=== PATIENT | male | born 1975 | race Two or more races ===

== ENCOUNTER 2019-04-01 05:08 | Emergency (ER) | payer MEDICAID ==
[~2019-04-01] VITALS: Ht 170.2 cm; Wt 91.8 kg
[2019-04-01 05:20] VITALS: Ht 170.2 cm; Wt 91.8 kg
[2019-04-01 06:27] LABS: CALCIUM 8.6 mg/dL (8.5-10.1); CARBON DIOXIDE 26.5 mmol/L (21-32); CHLORIDE SERUM 104 mmol/L (98-107); CREATININE SERUM 0.7 mg/dL (0.7-1.3); GFR1 > 60 mL/min; GLUCOSE SERUM 134 mg/dL (74-106); SODIUM SERUM 141 mmol/L (136-145)
[2019-04-01 06:31] LABS: ALKALINE PHOSPHATASE 78 U/L (46-116); ALT/SGPT 66 U/L (16-63); AMYLASE 59 U/L (25-115); AST/SGOT 30 U/L (15-37); BASOPHIL % 0.2 % (0-2); BILIRUBIN TOTAL 0.35 mg/dL (0.20-1.00); LIPASE 134 IU/L (73-393); PLATELET COUNT 296 x10^3mcL (130-400); RED CELL DISTRIBUTION WIDTH 13.4 % (11.5-14.5); TOTAL PROTEIN, SERUM 7.8 g/dL (6.4-8.2)
[2019-04-01 09:20] VITALS: BP 120/67
== END 2019-04-01 09:20 | disposition home or self-care (01) ==
LOC: ED 05:08
PROVIDERS: Emergency Medicine
DX: R10.11 Right upper quadrant pain (principal); R11.2 Nausea with vomiting, unspecified
CPT/HCPCS: J1885; J2270; J2405; J7030; Q0092